=== PATIENT | female | born 1940 | race Caucasian/White ===

== ENCOUNTER 2021-07-25 12:26 | Outpatient (CLI) | payer MEDICARE, MEDICAID, SELFPAY ==
--- NOTE | 2021-07-25 12:45 | USCV_ITS ---
Lianne Espinal Age: 81 Gender: F : 1940 Exam Date: 07/25/2021 12:52 Ordering Phys: Amilcar Poole Technologist: Taylor Alamo Exam Location: [facility] – [place] Indication: RLE PAIN AND SWELLING [id number] HISTORY: Lower extremity swelling. Lower extremity pain. PROCEDURES: Venous duplex imaging was performed in only the right lower extremity. The following venous structures were evaluated: common femoral vein, profunda vein, proximal portion of the greater saphenous vein, superficial femoral vein, and the popliteal vein. In addition, the posterior tibial and peroneal trunk were evaluated. Serial compression, augmentation maneuvers, and spectral Doppler flow evaluation were performed. FINDINGS: No evidence of DVT seen in any vessel visualized at this time. Superficial thrombus seen in in Varicose Veins and Prox-Mid GSV CONCLUSIONS Superficial thrombus Right Varicose Veins and Proximal to Mid GSV No evidence of right lower extremity DVT. Vidal Suresh MD (Electronically Signed) Final Date: 25 July 2021 16:26 S
== END 2021-07-25 12:27 | disposition home or self-care (01) ==
LOC: RAD 12:32
PROVIDERS: Visit Provider Family Medicine
DX: M79.604 Pain in right leg (principal); M79.89 Other specified soft tissue disorders; I82.890 Acute embolism and thrombosis of other specified veins
CPT/HCPCS: 93971

== ENCOUNTER 2022-04-19 18:19 | Emergency (ER) | payer MEDICARE, MEDICAID, SELFPAY ==
[2022-04-19 18:27] VITALS: BP 155/52; PULSE 82; RESP 18; TEMP 36.8; O2SAT 97; BMI 35.2
--- NOTE | 2022-04-19 18:31 | W.ED.FALL ---
HPI - Fall General: Chief Complaint: Fall Stated Complaint: Fell Head Injury Time Seen by Provider: 04/19/22 18:31 History of Present Illness: Ms. Espinal is a 82-year-old lady with history of vertigo who presents to the emergency department due to fall with head injury. She was moving a plant walking down a gravel incline when she was unable to stop and lost her footing falling forward primarily catching herself with her left hand and landing striking her face. No loss of consciousness. Denies history of blood thinner use. Was able to get up. Mild to moderate intensity discomfort associated with injuries. No other specific changes in health, exacerbating, or alleviating factors identified. Onset (ago): minute(s) Fall from: standing Fall witnessed: yes, by family Place fall occurred: home Loss of consciousness: None Prolonged down time: no Symptoms prior to fall: none Context: tripped/slipped Location of injury: face Location of injury - extremities: Left: forearm and hand Severity: mild Review of Systems General: Reports: 10 or more systems reviewed and unremarkable except in HPI and below PFSH ED PFSH: Medical History Vertigo Surgical History History of cholecystectomy History of hysterectomy Physical Exam Const: COMMON NORMALS: alert GENERAL APPEARANCE: cooperative and well developed HENMT: COMMON NORMALS: normocephalic HEAD & SCALP: normocephalic THROAT: posterior oropharynx normal OTHER: No hernandez signs or raccoon eyes. No hemotympanum. No otorrhea or rhinorrhea. Jaw alignment normal. Dentition baseline. No obvious bony step-offs. No septal hematoma. No evidence of ocular entrapment. Laceration to mid forehead approximately 2 cm with surrounding contusion. Mild contusion without tenderness palpation or deformity to bridge of nose likely from glasses. Eye: COMMON NORMALS: conjunctivae normal CONJUNCTIVA: Yes conjunctivae normal SCLERA: sclerae normal Neck/C-Spine: COMMON NORMALS: supple GENERAL: Yes trachea midline Resp: COMMON NORMALS: normal respiratory effort and clear to auscultation bilaterally EFFORT & INSPECTION: Yes able to speak in complete sentences AUSCULTATION: clear to auscultation bilaterally Cardio: COMMON NORMALS: regular rate and regular rhythm RATE: regular rate RHYTHM: regular rhythm GI: COMMON NORMALS: Soft to palpation PALPATION: Yes Soft to palpation and No Tenderness to palpation present (GI) Extremity: NARRATIVE EXTREMITY EXAM: Scattered abrasions to posterior aspect of forearm on the left. There are mild skin tears on the back of the hand on the left without active bleeding. More complex laceration approximately 3 cm with a deeper puncture center portion on the thenar eminence. GENERAL: Yes normal exam except as noted and No edema Neuro: COMMON NORMALS: moves all extremities SENSORIUM/ORIENTATION: Yes alert and No Orientation impaired Psych: COMMON NORMALS: mental status grossly normal and Normal thought process present THOUGHT PROCESS: Normal thought process present Procedures Laceration Laceration 1: Site: face Side (If applicable): left Size (cm): 3 Description: linear Depth: simple, single layer Local Anesthetic: lidocaine 1% and with epi Amount of anesthesia used (mL): 3 Pre-repair: wound explored, irrigated extensively and deep structures intact Skin layer closed with: nylon Size (cm): 5-0 Number of sutures: 4 Technique: simple, interrupted Laceration 2: Site: hand Side (If applicable): left Size (cm): 4 Description: flap and irregular Depth: involves muscle layer Local Anesthetic: lidocaine 1% and with epi Amount of anesthesia used (mL): 3 Pre-repair: wound explored, irrigated extensively and deep structures intact Skin layer closed with: nylon Size (cm): 4-0 Number of sutures: 9 Technique: simple, interrupted Subcutaneous layer closed with: vicryl Size: 4-0 Number of sutures: 2 Technique: simple, interrupted Laceration 3: Site: hand Side (If applicable): left Size (cm): 2 Description: flap Depth: simple, single layer Pre-repair: irrigated extensively Skin layer closed with: other (dermabond) Course Vital Signs: Vital signs: Vital Signs Temperature 98.2 F 04/19/22 21:22 Pulse Rate 82 04/19/22 21:22 Respiratory Rate 18 04/19/22 21:22 Blood Pressure 155/52 04/19/22 21:22 Pulse Oximetry 97 04/19/22 21:22 Oxygen Delivery Me thod 04/19/22 18:27 MDM - Fall Medical Decision Making 82-year-old lady presenting with fall and head injury. Based on clinical history provided I feel that the most likely etiology is slip and fall patient does not require laboratory studies at this time. Imaging studies ordered as appropriate, no acute bony or internal traumatic injury identified. Incidental findings discussed with patient. Laceration repaired as above. Satisfactory for outpatient management. Medical Records I reviewed the patient's medical records. Lab Data I reviewed the patient's lab results. Radiology Impressions Cervical Spine CT 04/19/22 18:39 IMPRESSION: No acute findings. Nonemergent thyroid ultrasound recommended for bilateral lesions COMMENTS: Consistent with the [employer]'s Incidental Findings Committee white paper (J Am Xin Radiol 2015): In patients aged 35 years and older with an incidental thyroid nodule equal to or greater than 1.[address], MRI or extrathyroidal US, further evaluation with dedicated thyroid US is recommended for patients with normal life expectancy and without comorbidities. For smaller nodules without suspicious features, no further evaluation or follow up is recommended. Elbow X-Ray 04/19/22 18:39 IMPRESSION: No acute findings. Hand X-Ray 04/19/22 18:39 IMPRESSION: No acute findings. Head CT 04/19/22 18:39 IMPRESSION: No acute intracranial abnormality. Wrist X-Ray 04/19/22 18:39 IMPRESSION: No acute bony findings. Discharge Plan Discharge Patient Disposition: Home Clinical Impression: Fall, Abnormal imaging of thyroid, Facial laceration, Complicated laceration of hand, Skin tear, Abrasion, multiple sites Condition: Stable Discharge Orders: Discharge ED (Routine); Ordered 04/19/22 Ordered By: Fabián Ruby Discharge Diet: Usual diet Discharge Activity: Increase activity as tolerated Patient Instructions: Care For Your Stitches (ED), Laceration (ED), Skin Tear (ED), Facial Laceration (ED) Activity Restrictions/Additional Instructions: Thank you for visiting the emergency department. You were seen and evaluated for fall with face and hand lacerations. No acute internal injury was identified. The lacerations were repaired at bedside. I recommend suture removal in 7 days. Please watch for signs of infection as discussed. Please keep the area clean and dry. Return to the emergency department for uncontrolled pain, any evidence of infection, or anything else that you are concerned about a feel needs emergency department evaluation. As discussed radiology did note bilateral thyroid lesions; nonemergent ultrasound recommended. This can be scheduled by your primary care provider. Coding Level of Care Code ED Learning Center Instructor for Chg Fwd Exam Comprehensive
--- NOTE | 2022-04-19 18:39 | XRR_ITS ---
PROCEDURE INFORMATION: Exam: XR Left Elbow Exam date and time: 04/19/2022 6:46 PM Age: 82 years old Clinical indication: Injury or trauma; Fall; Blunt trauma (contusions or hematomas); Elbow; Left; Additional info: [place] TECHNIQUE: Imaging protocol: Radiologic exam of the Left elbow. Views: 1 or 2 views. COMPARISON: No relevant prior studies available. FINDINGS: Bones/joints: Normal. Soft tissues: Normal. XR/XR elbow LT 2V [id number] IMPRESSION: No acute findings.
--- NOTE | 2022-04-19 18:39 | CTR_ITS ---
PROCEDURE INFORMATION: Exam: CT Cervical Spine Without Contrast Exam date and time: 04/19/2022 7:27 PM Age: 82 years old Clinical indication: Injury or trauma; Fall; Blunt trauma; Additional info: Fall, anterior head strike TECHNIQUE: Imaging protocol: Computed tomography of the cervical spine without contrast. Radiation optimization: All CT scans at this facility use at least one of these dose optimization techniques: automated exposure control; mA and/or kV adjustment per patient size (includes targeted exams where dose is matched to clinical indication); or iterative reconstruction. COMPARISON: CT head wo con* [id number] 04/19/2022 7:23 PM RADIATION DOSE METRICS: Total DLP (mGy-cm): 146.67 FINDINGS: Bones/joints: Degenerative disc changes are noted C5-C6 and C6-C7. 3 mm of anterolisthesis of C4 on C5 noted. Multilevel facet arthrosis with fusion on the right C3-C4 and on the left C2-C3. No findings of fracture. Lungs: Lung apices are normal. Thyroid: Bilateral thyroid lesions; nonemergent ultrasound recommended. Soft tissues: Unremarkable. CT/CT cervical spin wo con* [id number] IMPRESSION: No acute findings. Nonemergent thyroid ultrasound recommended for bilateral lesions COMMENTS: Consistent with the [employer]'s Incidental Findings Committee white paper (J Am Xin Radiol 2015): In patients aged 35 years and older with an incidental thyroid nodule equal to or greater than 1.[address], MRI or extrathyroidal US, further evaluation with dedicated thyroid US is recommended for patients with normal life expectancy and without comorbidities. For smaller nodules without suspicious features, no further evaluation or follow up is recommended.
--- NOTE | 2022-04-19 18:39 | XRR_ITS ---
PROCEDURE INFORMATION: Exam: XR Left Wrist Exam date and time: 04/19/2022 6:46 PM Age: 82 years old Clinical indication: Injury or trauma; Fall; Blunt trauma (contusions or hematomas); Wrist; Left; Additional info: Fall, laceration TECHNIQUE: Imaging protocol: Radiologic exam of the Left wrist. Views: 3 or more views. COMPARISON: No relevant prior studies available. FINDINGS: Bones/joints: No acute bony findings. Degenerative change 1st carpal metacarpal joint. Soft tissues: Radiopacities at the soft tissues anteriorly over base of 1st metacarpal may represent antiseptic and can be correlated clinically. XR/XR wrist LT min 3V* [id number] IMPRESSION: No acute bony findings.
--- NOTE | 2022-04-19 18:39 | XRR_ITS ---
PROCEDURE INFORMATION: Exam: XR Left Hand Exam date and time: 04/19/2022 6:46 PM Age: 82 years old Clinical indication: Injury or trauma; Fall; Blunt trauma (contusions or hematomas); Hand; Left; Additional info: Fall, lacerations TECHNIQUE: Imaging protocol: Radiologic exam of the Left hand. Views: 3 or more views. COMPARISON: No relevant prior studies available. FINDINGS: Bones/joints: Advanced degenerative changes at interphalangeal joints and more moderate MCP degenerative changes are noted. No acute bony findings. Soft tissues: See wrist report. XR/XR hand LT min 3V* [id number] IMPRESSION: No acute findings.
--- NOTE | 2022-04-19 18:39 | CTR_ITS ---
PROCEDURE INFORMATION: Exam: CT Head Without Contrast Exam date and time: 04/19/2022 7:23 PM Age: 82 years old Clinical indication: Injury or trauma; Fall; Abrasion and concussion/head injury; Forehead; Additional info: Fall, anterior head strike TECHNIQUE: Imaging protocol: Computed tomography of the head without contrast. Radiation optimization: All CT scans at this facility use at least one of these dose optimization techniques: automated exposure control; mA and/or kV adjustment per patient size (includes targeted exams where dose is matched to clinical indication); or iterative reconstruction. COMPARISON: No relevant prior studies available. RADIATION DOSE METRICS: Total DLP (mGy-cm): 1089.78 FINDINGS: Brain: Prominent cisterna magna noted. Intracranial contents are otherwise unremarkable. Cerebral ventricles: No ventriculomegaly. Paranasal sinuses: Visualized sinuses are unremarkable. No fluid levels. Mastoid air cells: Visualized mastoid air cells are well aerated. Bones/joints: No acute findings. Soft tissues: Minimal swelling and gas lower frontal region. CT/CT head wo con* [id number] IMPRESSION: No acute intracranial abnormality.
[2022-04-19] MEDS: tetanus-dipt-pertussis 0.5 mL SDV IM (19:18)
[2022-04-19] MEDS: acetaminophen 650 mg/20.3 mL UDC 1000 MG PO (20:46)
[2022-04-19 21:22] VITALS: BP 155/52; PULSE 82; RESP 18; TEMP 36.8; O2SAT 97
== END 2022-04-19 21:24 | disposition home or self-care (01) ==
PROVIDERS: Emergency Provider Emergency Medicine
DX: S01.81XA Laceration without foreign body of other part of head, initial encounter (principal); S61.412A Laceration without foreign body of left hand, initial encounter; W10.2XXA Fall (on)(from) incline, initial encounter; R94.6 Abnormal results of thyroid function studies; S50.812A Abrasion of left forearm, initial encounter; S00.83XA Contusion of other part of head, initial encounter; Z23 Encounter for immunization
CPT/HCPCS: 12001; 12013; 12042; 70450; 72125; 73070; 73110; 73130; 90471; 90715; 99285

== ENCOUNTER → 2022-07-26 07:50 | Outpatient (BNVA) | payer MEDICARE, MEDICAID, SELFPAY | PROVIDERS: PCP Nurse Practitioner; Referring Provider Nurse Practitioner; Visit Provider Internal Medicine | DX: E04.9 Nontoxic goiter, unspecified (principal); E04.2 Nontoxic multinodular goiter | CPT/HCPCS: 99203; 99204 ==

== ENCOUNTER 2022-12-24 12:28 | Outpatient (CLI) | payer MEDICARE, MEDICAID, SELFPAY ==
--- NOTE | 2022-12-24 12:45 | US_ITS ---
WS: [id number] ULTRASOUND THYROID TECHNIQUE: Ultrasound of the thyroid. CLINICAL INFORMATION: see below COMPARISON: None. FINDINGS: Thyroid: Right and left thyroid lobes are heterogeneous in echotexture with multiple nodules RIGHT gr eater than LEFT. Appearance is most compatible with multinodular goiter. Largest nodule RIGHT thyroid inferiorly measures 2.2 x 1.6 x 2.1 cm Right thyroid lobe: 4.8 cm x 2.2 cm x 2.5 cm Left thyroid lobe: 3.4 cm x 1.2 cm x 1.4 cm. Isthmus: 0.2 mm. Cervical lymphadenopathy: None. US/US thyroid [id number] IMPRESSION: Findings compatible with multinodular goiter.
== END 2022-12-24 12:29 | disposition home or self-care (01) ==
LOC: RAD 12:34
PROVIDERS: PCP Nurse Practitioner; Visit Provider Internal Medicine
DX: E04.2 Nontoxic multinodular goiter (principal)
CPT/HCPCS: 76536

== ENCOUNTER → 2023-01-01 09:01 | Outpatient (BNVA) | payer MEDICARE, MEDICAID, SELFPAY | PROVIDERS: PCP Nurse Practitioner; Visit Provider Internal Medicine | DX: E04.2 Nontoxic multinodular goiter (principal); E04.9 Nontoxic goiter, unspecified | CPT/HCPCS: 99213 ==

== ENCOUNTER 2023-01-29 07:29 | Outpatient (CLI) | payer MEDICARE, MEDICAID, SELFPAY ==
--- NOTE | 2023-01-29 08:15 | US_ITS ---
WS: [id number] ULTRASOUND THYROID FNA CLINICAL INFORMATION: E04.2 - Nontoxic multinodular goiter TECHNIQUE: Ultrasound-guided FNA FINDINGS: The procedure including risks, benefits, and complications were discussed with the patient who agreed to proceed. Timeout was performed. Using sterile technique patient was prepped and draped in usual sterile fashion. After 1% lidocaine, using ultrasound guidance, a 25-gauge needle was advanc ed into the RIGHT inferior thyroid nodule. 4 passes were made with active aspiration. Pathology was p resent for slide preparation. No immediate complications. Patient remained in the ultrasound suite 10 minutes postprocedure with intermittent ultrasound to ens ure no hematoma. No hematoma 10 minutes postprocedure. US/US biopsy/FNA thyroid [id number] IMPRESSION: 1. Uncomplicated ultrasound-guided thyroid FNA 2. Cytology is pending.
== END 2023-01-29 07:30 | disposition home or self-care (01) ==
LOC: RAD 07:31
PROVIDERS: PCP Nurse Practitioner; Visit Provider Internal Medicine
DX: E04.2 Nontoxic multinodular goiter (principal)
CPT/HCPCS: 10005; 88173

== ENCOUNTER → 2023-04-18 13:13 | Outpatient (BNVA) | payer MEDICARE, MEDICAID, SELFPAY | PROVIDERS: PCP Nurse Practitioner; Visit Provider Podiatrist Foot & Ankle Surgery | DX: L03.032 Cellulitis of left toe (principal); L84 Corns and callosities; B35.1 Tinea unguium | CPT/HCPCS: 99203 ==

== ENCOUNTER → 2023-04-25 11:09 | Outpatient (BNVA) | payer MEDICARE, MEDICAID, SELFPAY | PROVIDERS: PCP Nurse Practitioner; Visit Provider Podiatrist Foot & Ankle Surgery | DX: L03.032 Cellulitis of left toe (principal); L84 Corns and callosities; B35.1 Tinea unguium | CPT/HCPCS: 99213 ==